=== PATIENT | female | born 1975 | race Two or more races ===

== ENCOUNTER 2024-04-14 13:30 | Emergency (ER) | payer MEDICAID, OTHER ==
[~2024-04-14] VITALS: Ht 162.6 cm; Wt 65.8 kg
[2024-04-14] MEDS ORDERED: LISI20TA30 PO (13:53)
[2024-04-14 14:34] VITALS: BP 143/88; TEMP 98.2; O2SAT 100
== END 2024-04-14 14:43 | disposition home or self-care (01) ==
LOC: ER 13:30
DX: I10 Essential (primary) hypertension (principal); Z76.0 Encounter for issue of repeat prescription